=== PATIENT | female | born 1930 | race Asian ===

== ENCOUNTER 2017-09-19 10:27 | Emergency (ER) | payer OTHER, MEDICARE ==
[~2017-09-19] VITALS: Ht 139.7 cm; Wt 45.4 kg
[~2017-09-19 10:27] MED LIST: AMLODIPINE BESY10 MG; AMLODIPINE BESY10 MG ORAL; ATENOLOL50 MG; ATENOLOL50 MG ORAL; BACTRIM DS TAB1 EAC1 ORAL; CARDIZEM CD120 MG ORAL; DETROL2 MG ORAL; DILTIAZEM 24HR240 M1; DILTIAZEM 24HR240 MG PO; DOCUSATE SODIU250 MG ORAL; FUROSEMIDE20 M1 ORAL; IBUPROFEN200 M2 ORAL; LASIX20 M1 ORAL; LEVAQUIN250 M1 ORAL; MECLIZINE HCL25 MG ORAL; POTASSIUM CHLO20 ME1 ORAL; PROAIR HFA8.5 GM INH; lasix PO
--- NOTE | 2017-09-19 11:51 | Emergency Room Report ---
History of Present Illness General Chief Complaint: Upper Extremity Injury Source: Patient Present Illness HPI Patient presents with complaints of right wrist pain Patient had a fall mechanical nature approximately 3 days ago As the swelling and discomfort persisted patient is brought in by son-in-law Pain is 1/10 localized to the distal wrist worse with touch Patient at this time is refusing oral pain medication Otherwise denies any chest pain or shortness of breath denies any neuropathy Allergies: Coded Allergies: PENICILLINS (Verified Allergy, Severe, Anaphylaxis, 09/14/15) Patient History Past Medical History: see triage record Pertinent Family History: none Reviewed Nursing Documentation: PMH: Agreed, PSxH: Agreed Nursing Documentation-PMH Past Medical History: No History, Except For Hx Cardiac Problems: Yes - CHF Hx Hypertension: Yes Hx Asthma: Yes Hx Cancer: No Hx Gastrointestinal Problems: Yes Hx Neurological Problems: No Hx Dizziness: Yes Hx Weakness: Yes Review of Systems All Other Systems: negative except mentioned in HPI Physical Exam Vital Signs Date Time Temp Pulse Resp B/P (MAP) Pulse Ox O2 Delivery O2 Flow Rate FiO2 09/19/17 10:38 98.2 65 18 167/66 95 Room Air Sp02 EP Interpretation: reviewed, normal General Appearance: well appearing, no apparent distress Head: normocephalic, atraumatic Eyes: bilateral eye PERRL, bilateral eye EOMI ENT: hearing grossly normal, normal pharynx Neck: supple Respiratory: normal inspection, chest non-tender Cardiovascular #1: regular rate, rhythm, no edema Gastrointestinal: non tender Musculoskeletal: decreased range of motion - Patient does have increased discomfort with attempts of flexion or extension limited exam was performed. No obvious compartment syndrome neurovascularly intact, swelling - Distal right wrist Neurologic: alert, oriented x3, responsive Skin: other - Swelling noted Lymphatic: no adenopathy Procedures Splinting Splinting : Consent: Verbal Location: Right wrist Hand-Made Type: plaster Splint: sugar-tong Pre-Proc Neuro Vasc Exam: normal Post-Proc Neuro Vasc Exam: normal Patient Tolerated: Well Complications: None Medical Decision Making Diagnostic Impression: Primary Impression: wrist fracture ER Course Given the findings on x-ray patient was splinted in the ER Patient remains neurovascularly intact Patient has appropriate followup with orthopedics And will return with any changes Other X-Ray Diagnostic Results Other X-Ray Diagnostic Results : X-Ray ordered: Right wrist # of Views/Limited Vs Complete: 4 View Indication: Pain EP Interpretation: Yes Interpretation: other - Acute distal radial fracture, impacted mild displacement no obvious foreign body, Impression: Other - Acute distal radial fx Electronically Signed by: Karla Guzman DO Last Vital Signs Date Time Temp Pulse Resp B/P (MAP) Pulse Ox O2 Delivery O2 Flow Rate FiO2 09/19/17 10:38 98.2 65 18 167/66 95 Room Air Status: improved Disposition: HOME, SELF-CARE Condition: Stable Referrals: RADHA GARCIA (PCP) Patient Instructions: Wrist Fracture, [id number] Additional Instructions: Patient is provided with the discharge instructions notified to follow up with primary doctor in the next 2-3 days otherwise return to the er with any worsening symptoms. Please note that this report is being documented using [employer] technology. This can lead to erroneous entry secondary to incorrect interpretation by the dictating instrument. KARLA GUZMAN D.O. Sep 19, 2017 11:51
[2017-09-19 12:05] VITALS: BP 156/70
--- NOTE | 2017-09-19 14:17 | Diagnostic Imaging Report ---
Indication: Pain Findings: 3 views of the right wrist were obtained. There is an acute fracture of the distal radius which appears intra-articular and slightly impacted. Bones are severely osteopenic. Degenerative osteophytes and joint space narrowing involving the interphalangeal joint of the thumb which appears moderately subluxed. Arthrosis moderately involving the scaphotrapezium joint and the base of the first metacarpal. IMPRESSION: Acute distal radius fracture. 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
== END 2017-09-19 12:05 | disposition home or self-care (01) ==
LOC: EMR 11:37
DX: S52.501A Unspecified fracture of the lower end of right radius, initial encounter for closed fracture (principal); W19.XXXA Unspecified fall, initial encounter; Y92.000 Kitchen of unspecified non-institutional (private) residence as the place of occurrence of the external cause; I11.0 Hypertensive heart disease with heart failure; I50.9 Heart failure, unspecified; J45.909 Unspecified asthma, uncomplicated; Z88.0 Allergy status to penicillin
CPT/HCPCS: 29125; 99283